=== PATIENT | male | born 1955 | race Caucasian/White ===

== ENCOUNTER 2016-10-05 17:30 | Emergency (ER) | payer MEDICAID, MEDICARE ==
[2016-10-05] MEDS ORDERED: Sodium Chloride 0.9% 1,000 ML IV ONE (17:49)
--- NOTE | 2016-10-05 17:56 | ED Physician Chart ---
Chief Complaint/HPI - Patient Information Date Seen:: 10/05/16 Time Seen:: 17:51 Chief Complaint:: alt ms History of Present Illness:: pt brought in [facility] [place] hospital after police called and found pt drowsey/altered. he admits to having taking a few ativan tabs earlier. he denies being suicidal. pt is very drowsey. he is arousable and talks but closes his eyes and refuses to respond mostly when i ask questions. He is clearly understanding what I say and gets mad at me for asking him to stay awake long enough to answer qs. after 5th time when I ask him to please answer if he was intending to hurt himself he yells "NO" at me and then goes back to ignoring me w eyes closed. he denies having any pain or acute illness or problem and is angry w ems for bringing him here. he has a ativan rx from 09/20 for 30 tabs w 23 now gone from bottle. He says the ativan is for chronic hip pain. he has a abs sx scar from past but refuses to tell me what was done or when. Allergies:: Allergies Allergy/AdvReac Type Severity Reaction Status Date / Time No Known Allergies Allergy Verified 10/05/16 17:45 Historian:: Patient Review of Systems - Review of Systems General/Constitutional: No fever, No chills, No weight loss, No weakness, No diaphoresis, No edema, No loss of appetite Skin: No skin lesions, No rash, No bruising Head: No headache, No light-headedness Eyes: No loss of vision, No pain, No diplopia ENT: No earache, No nasal drainage, No sore throat, No tinnitus Neck: No neck pain, No swelling, No thyromegaly, No stiffness, No mass noted Cardio Vascular: No chest pain, No palpitations, No PND, No orthopnea, No edema Pulmonary: No SOB, No cough, No sputum, No wheezing GI: No nausea, No vomiting, No diarrhea, No pain, No melena, No hematochezia, No constipation, No hematemesis G/U: No dysuria, No frequency, No hematuria Musculoskeletal: No bone or joint pain, No back pain, No muscle pain Endocrine: No polyuria, No polydipsia Psychiatric: No prior psych history, No depression, No anxiety, No suicidal ideation Hematopoietic: No bruising, No lymphadenopathy Allergic/Immuno: No urticaria, No angioedema Neurological: No syncope, No focal symptoms, No weakness, No paresthesia, No headache, No seizure, No dizziness, No confusion, No vertigo Past Medical History - Past Medical History Past Medical History: Other (anxiety, chronic hip pain, chronz dz and abd sx was related to that) Social History: Illicit Drug Use (?unclear/) Surgical History: other (abd ex lap (unknown why/when)) Medication: Reviewed Physical Exam - Physical Examination General/Constitutional: Awake, Well-developed, well-nourished, Alert, No distress, GCS 15, Non-toxic appearing, Ambulatory Head: Atraumatic Eyes: Lids, conjuctiva normal, PERRL, EOMI Skin: Nl inspection, No rash, No skin lesions, No ecchymosis, Well hydrated, No lymphadenopathy ENMT: External ears, nose nl, Nasal exam nl, Lips, teeth, gums nl Neck: Nontender, Full ROM w/o pain, No JVD, No nuchal rigidity, No bruit, No mass, No stridor Respiratory: Nl effort/Exclusion, Clear to Auscultation, No Wheeze/Rhonchi/Rales Cardio Vascular: RRR, No murmur, gallop, rubs, NL S1 S2 GI: No tenderness/rebounding/guarding, No organomegaly, No hernia, Normal BS's, Nondistended, No mass/bruits, No McBurney tenderness : No CVA tenderness Extremities: No tenderness or effusion, Full ROM, normal strength in all extremities, No edema, Normal digits & nails Neuro/Psych: Alert/oriented, DTR's symmetric, Normal sensory exam, Normal motor strength, Judgement/insight normal, Normal gait, No focal deficits Other Neuro/Psych comments:: drowsey if not stimulated. no focal neuro defecit. pt capable of nrml conversation w staff members when he wants to(witnessed 5 min after my encounter ) Misc: normal gait, Normal back, No paraspinal tenderness ED Septic Shock - . Is Septic Shock (SBP<90, OR Lactate>4 mmol\\L) present?: No Reassessment (Disposition) - Reassessment Reassessment:: p - pt is now awake and alert and conversing coherently..also he is walking w stable gait. he adds hx of having chronz dz and abd sx was related to that. he has been off chronz meds x 2yrs and in remission. no cp . no abd p. dw pt elevated wbc. rechk temp core was nrml. cxr clear. pt shows no sign of infection on exam. told pt he may go if friend will pick him up. he feels fine now and is still upset he was brought here. he did take the oral charcoal. advised to be careful w his meds and use only as rxd. he is denying suicidal to multiple staff members including me. Reassessment Condition:: Improved - Diagnosis Diagnosis:: 1 benzodiazepine overmedicaion 2 pt denies suicidal ideation - Aftercare/Follow up Instructions Aftercare/Follow-Up Instructions:: Counseled pt regarding lab results/diagnosis & need follow up - Patient Disposition Discharge/Transfer:: Home Condition at Disposition:: Improved
[2016-10-05 18:09] LABS: HEMATOCRIT 46.4 % (39.0-49.0); HEMOGLOBIN 15.8 gm/dL (13.2-17.3); MEAN CORPUSCULAR HEMOGLOBIN 29.6 pg (26.0-30.0); MEAN PLATELET VOLUME 7.5 fl; PLATELET COUNT 312 Th/cmm (150-400); RED BLOOD COUNT 5.33 Mil/cmm (4.30-5.70); RED CELL DISTRIBUTION WIDTH 13.8 % (11.5-20.0)
[2016-10-05 18:14] LABS: WHITE BLOOD COUNT 18.3 Th/cmm (4.8-10.8)
[2016-10-05 18:27] LABS: ALB/GLOB RATIO 1.1 (1.0-1.8); ALKALINE PHOSPHATASE 100 U/L (34-104); ANION GAP 10.3 (7.0-16.0); BILIRUBIN,TOTAL 0.4 mg/dL (0.3-1.0); BUN - UREA NITROGEN 13 mg/dL (7-25); BUN/CREATININE RATIO 9.3; CALCIUM SERUM 9.7 mg/dL (8.6-10.3); CARBON DIOXIDE 22.6 mEq/L (21.0-31.0); CHLORIDE 103 mEq/L (98-107); CREATININE - SERUM 1.4 mg/dL (0.7-1.3); GLUCOSE 113 mg/dL (70-105); POTASSIUM SERUM 3.9 mEq/L (3.5-5.1); SGOT 26 U/L (13-39); SGPT/ALT 19 U/L (7-52); SODIUM SERUM 132 mEq/L (136-145)
[2016-10-05 18:28] LABS: ACETAMINOPHEN < 10.0 ug/mL (10.0-30.0)
[2016-10-05 18:31] LABS: BASOPHIL 1 % (0-3); EOSINOPHIL 1 % (0-5); NEUTROPHILS 73 % (40-80); PLATELET ESTIMATE ADEQUATE (NORMAL); PLATELET MORPHOLOGY NORMAL (NORMAL); TOTAL CELLS COUNTED 100
--- NOTE | 2016-10-06 08:01 | Diagnostic Imaging Report ---
Portable chest x-ray History: Fever Allowing for portable technique the heart size is normal. No focal pulmonary parenchymal processes. No hilar or mediastinal abnormalities. Impression: No acute abnormalities.
== END 2016-10-05 21:42 | disposition home or self-care (01) ==
LOC: ER 17:30
DX: R41.82 Altered mental status, unspecified (principal); T42.4X1A Poisoning by benzodiazepines, accidental (unintentional), initial encounter; Y92.89 Other specified places as the place of occurrence of the external cause
CPT/HCPCS: 36415-UA; 71010-TC; 80053-TC; 80320-TC; 80329-TC; 83605; 84484-TC; 85007-TC; 85027-TC; 93005; J7030; Z7610